=== PATIENT | female | born 1960 | race Caucasian/White ===

== ENCOUNTER 2021-12-23 09:05 | Outpatient (CLI) | payer BC, SELFPAY ==
[2021-12-23 10:13] LABS: Glucose, Point-of-Care* 126 mg/dl (60-115)
--- NOTE | 2021-12-23 11:01 | W.ANESCHARGE ---
Anesthesia Charges Start Date/Time Anesthesia Start Date: 12/23/21 Anesthesia Start Time: 10:10 Stop Date/Time Anesthesia Stop Date: 12/23/21 Anesthesia Stop Time: 10:58 Summary Emergency: No
== END 2021-12-23 09:06 | disposition home or self-care (01) ==
LOC: OP CLINIC 09:09
PROVIDERS: Visit Provider Internal Medicine Gastroenterology
DX: Z13.810 Encounter for screening for upper gastrointestinal disorder (principal); K22.70 Barrett's esophagus without dysplasia; K44.9 Diaphragmatic hernia without obstruction or gangrene; K63.5 Polyp of colon; Z86.010 Personal history of colon polyps
CPT/HCPCS: 43239; 45380; 45385; 813; 82947; 88305; J2704